=== PATIENT | female | born 2005 | race Hispanic/Latino ===

== ENCOUNTER 2023-03-28 13:56 | Day surgery (SDC) | payer MEDICAID, SELFPAY ==
[2023-03-28] MEDS ORDERED: Acetaminophen 500 MG TAB ONE (14:46)
[2023-03-28] MEDS ORDERED: Acetaminophen 500 MG TAB PO SCH (15:30)
[2023-03-28] MEDS ORDERED: Iron Sucrose Complex 500 MG in Sodium Chloride 0.9% 250 ML 250 ML IVPB SCH (15:30)
== END 2023-03-28 19:45 | disposition home or self-care (01) ==
LOC: CSHLD/OP 13:56
PROVIDERS: ATTEND Student in an Organized Health Care Education/Training Program
DX: O99.019 Anemia complicating pregnancy, unspecified trimester (principal); D64.9 Anemia, unspecified; Z3A.00 Weeks of gestation of pregnancy not specified
CPT/HCPCS: J1756; J7050

== ENCOUNTER 2023-08-09 18:41 | Day surgery (SDC) | payer SELFPAY ==
[2023-08-09 19:40] VITALS: BMI 36.9
[2023-08-09] MEDS ORDERED: hydrALAZINE 20 MG/ML VIAL SLOW IVP PRN (19:52)
== END 2023-08-09 21:45 | disposition home or self-care (01) ==
LOC: CSHLD/OP 18:41
PROVIDERS: ATTEND Family Medicine
DX: O36.8330 Maternal care for abnormalities of the fetal heart rate or rhythm, third trimester, not applicable or unspecified (principal); Z3A.33 33 weeks gestation of pregnancy; Z79.82 Long term (current) use of aspirin
CPT/HCPCS: 76819

== ENCOUNTER 2023-09-17 19:20 | Inpatient (IN) | payer MEDICAID, SELFPAY ==
[2023-09-17] MEDS ORDERED: hydrALAZINE 20 MG/ML VIAL SLOW IVP PRN (20:10)
[2023-09-17] MEDS ORDERED: Lidocaine 1% (PF) 30 ML VIAL SC PRN (20:10)
[2023-09-17] MEDS ORDERED: Promethazine HCl 25 MG/ML VIAL IM PRN (20:10)
[2023-09-17] MEDS ORDERED: Ondansetron PF 4 MG/2 ML Vial IVP PRN (20:10)
[2023-09-17] MEDS ORDERED: Diphenoxylate HCl/Atropine Tablet PO PRN (20:11)
[2023-09-17] MEDS ORDERED: Acetaminophen 500 MG TAB PO PRN (20:11)
[2023-09-17] MEDS ORDERED: Misoprostol 200 MCG TAB PR PRN (20:11)
[2023-09-17] MEDS ORDERED: Docusate 100 MG CAP PO PRN (20:11)
[2023-09-17] MEDS ORDERED: Methylergonovine 0.2 MG/ML VIAL IM PRN (20:11)
[2023-09-17] MEDS ORDERED: Tranexamic Acid 1,000 MG/10 ML VIAL IVP PRN (20:11)
[2023-09-17] MEDS ORDERED: Carboprost 250 MCG/ML AMP IM PRN (20:11)
[2023-09-17 20:13] VITALS: BMI 39.3
[2023-09-17] MEDS ORDERED: Penicillin G Potassium 5 MILL.UNITS in Sodium Chloride 0.9% 100 ML IVPB SCH (20:15)
[2023-09-17] MEDS ORDERED: Oxytocin 30 units/NS 500 ML 500 ML IV SCH ×2 (20:15→20:30)
[2023-09-17 20:33] LABS: Hemoglobin 12.6 g/dL (12.0-15.5); Mean Corpuscular HGB CONC 33.2 g/dL (32.0-36.0); Mean Corpuscular Hemoglobin 28.8 pg (27.0-33.0); Mean Platelet Volume 11.4 fl (7.4-10.4); Platelet Count 260 10x3/uL (150-450); RBC Distribution Width 14.2 % (11.5-14.5); Red Blood Cell (RBC) Count 4.37 10x6/uL (3.90-5.03); White Blood Cell (WBC) Count 11.5 10x3/uL (3.5-10.5)
[2023-09-17] MEDS: Lactated Ringer's 1,000 ML IV SCH (20:50)
[2023-09-17] MEDS ORDERED: Misoprostol 100 MCG TAB VAG SCH (21:00)
[2023-09-17 21:05] LABS: HBSAg Index 0.13 S/CO (0-0.99); Hep B Surf Ag - L&D Non-Reactive S/CO (NonReactive)
[2023-09-17 21:07] LABS: Syphilis Antibody Nonreactive (Nonreactive); Syphilis Antibody Index 0.05 S/CO (<1.00 Non-Reactive)
[2023-09-17 21:20] LABS: Glucose 108 mg/dL (70-105)
[2023-09-18] MEDS: Penicillin G 2.5 MILL.units 2.5 MILL.UNITS in Premix 1 BAG IVPB SCH ×5 (01:32→21:42)
[2023-09-18] MEDS: Lactated Ringer's 1,000 ML IV SCH ×2 (05:33→21:42)
[2023-09-18] MEDS ORDERED: fentaNYL/Ropivacaine Epidural 100 ML ONE (12:18)
[2023-09-18] MEDS ORDERED: Ondansetron PF 4 MG/2 ML Vial IVP PRN (13:20)
[2023-09-18] MEDS ORDERED: Moisturizing Cream (Eucerin) 113 GM JAR TOP PRN (13:20)
[2023-09-18] MEDS ORDERED: ePHEDrine Sulfate 50 MG/10 ML VIAL SLOW IVP PRN (13:20)
[2023-09-18] MEDS ORDERED: Promethazine HCl 25 MG/ML VIAL IM PRN (13:20)
[2023-09-18] MEDS ORDERED: diphenhydrAMINE 50 MG/ML VIAL IVP PRN (13:20)
[2023-09-18] MEDS ORDERED: Lactated Ringer's 500 ML IV PRN (13:20)
[2023-09-18] MEDS ORDERED: Acetaminophen 325 MG TAB PO PRN (13:20)
[2023-09-18] MEDS ORDERED: Naloxone HCl 0.4 mg/ml Vial IVP PRN ×2 (13:20)
[2023-09-18] MEDS ORDERED: Communication Order-Pharmacy FS SCH (13:30)
[2023-09-18] MEDS ORDERED: fentaNYL 2 mcg/Ropivacaine 0.2% Epidural 100 ML CADD EPIDURAL SCH (13:30)
[2023-09-18] MEDS ORDERED: Preparation H Ointment 28 GM TUBE PR PRN (19:25)
[2023-09-18] MEDS ORDERED: Bisacodyl 10 MG SUPP PR PRN (19:25)
[2023-09-18] MEDS ORDERED: Boostrix 0.5 ML (Tdap) VIAL (>/=7 yrs of age) IM ONE (19:25)
[2023-09-18] MEDS ORDERED: Lanolin Ointment 7 GM TUBE TOP PRN (19:25)
[2023-09-18] MEDS ORDERED: Benzocaine-Menthol 82.5 ML CAN TOP PRN (19:25)
[2023-09-18] MEDS ORDERED: Milk Of Magnesia 30 ML UDCUP PO PRN (19:25)
[2023-09-18] MEDS ORDERED: Ibuprofen 800 MG TAB PO SCH (20:00)
[2023-09-19] MEDS: Ibuprofen 800 MG TAB PO SCH ×3 (05:23→21:18)
[2023-09-19] MEDS: Ferrous Sulfate 325 MG TAB PO SCH ×2 (07:09→16:11)
[2023-09-19] MEDS: Prenatal Vitamin 1 TAB PO SCH (09:57)
[2023-09-20] MEDS: Ibuprofen 800 MG TAB PO SCH (05:25)
[2023-09-20] MEDS: Ferrous Sulfate 325 MG TAB PO SCH (07:26)
[2023-09-20 07:53] VITALS: BP 123/66; TEMP 97.9
[2023-09-20] MEDS ORDERED: ePHEDrine Sulfate 50 MG/10 ML VIAL ONE (08:00)
[2023-09-20] MEDS ORDERED: Bupivacaine 0.25% HCL 30 ML VIAL ONE (08:00)
[2023-09-20] MEDS: Prenatal Vitamin 1 TAB PO SCH (09:29)
== END 2023-09-20 13:20 | disposition home or self-care (01) | DRG 806 ==
LOC: CSHLD 19:20 → CSHPP 09-18 21:30
PROVIDERS: ADMIT Obstetrics & Gynecology; ATTEND Obstetrics & Gynecology
PROC: 10E0XZZ Delivery of Products of Conception, External Approach (ICD-10-PCS; principal; 2023-09-18)
PROC: 10907ZC Drainage of Amniotic Fluid, Therapeutic from Products of Conception, Via Natural or Artificial Opening (ICD-10-PCS; 2023-09-18)
PROC: 10H07YZ Insertion of Other Device into Products of Conception, Via Natural or Artificial Opening (ICD-10-PCS; 2023-09-18)
PROC: 3E033XZ Introduction of Vasopressor into Peripheral Vein, Percutaneous Approach (ICD-10-PCS; 2023-09-18)
DX: O24.425 Gestational diabetes mellitus in childbirth, controlled by oral hypoglycemic drugs (principal); O72.1 Other immediate postpartum hemorrhage; Z37.0 Single live birth; Z3A.39 39 weeks gestation of pregnancy; O99.824 Streptococcus B carrier state complicating childbirth
CPT/HCPCS: 36416; 51702; 82947; 85027; 86780; 86850; 86900; 86901; 87340; J2540; J2590; J3490; J7120